=== PATIENT | male | born 1960 | race Caucasian/White ===

== ENCOUNTER 2023-04-17 18:05 | Emergency (ER) | payer MEDICARE, MEDICAID ==
[~2023-04-17] VITALS: Ht 167.6 cm; Wt 63.6 kg
[~2023-04-17 18:05] MED LIST: DULO-113 PO; METF-444 PO
[2023-04-17] MEDS ORDERED: SEMA0.258 SQ (18:18)
[2023-04-17] MEDS ORDERED: PANT-31 PO (18:18)
[2023-04-17] MEDS ORDERED: LINA5TAB PO (18:18)
[2023-04-17] MEDS ORDERED: EMPA10TA3 PO (18:18)
[2023-04-17] MEDS ORDERED: BUPR1FIL SL (18:18)
[2023-04-17] MEDS ORDERED: QUET100T PO (18:18)
[2023-04-17] MEDS ORDERED: METO-296 PO (18:18)
[2023-04-17] MEDS ORDERED: KETOROLAC TROMETHAMINE 30 MG/ML VIAL IM ONE (18:45)
[2023-04-17] MEDS ORDERED: LIDOCAINE 5% TRANSDERMAL PATCH TD ONE (18:45)
[2023-04-17] MEDS ORDERED: CYCLOBENZAPRINE HCL 10 MG TABLET PO ONE (18:45)
[2023-04-17] MEDS ORDERED: IBUP-1492 PO (19:27)
[2023-04-17] MEDS ORDERED: LIDO700A15 TP (19:27)
[2023-04-17] MEDS ORDERED: CYCL-448 PO (19:27)
[2023-04-17 19:41] VITALS: BP 135/89; PULSE 79; RESP 18; TEMP 97.3
== END 2023-04-17 19:41 | disposition home or self-care (01) ==
LOC: EMS 18:06
DX: M54.50 Low back pain, unspecified (principal); E11.42 Type 2 diabetes mellitus with diabetic polyneuropathy; F17.210 Nicotine dependence, cigarettes, uncomplicated; Z98.890 Other specified postprocedural states
CPT/HCPCS: 99283; 72100; 96372; J1885